=== PATIENT | female | born 1955 | race Two or more races ===

== ENCOUNTER 2021-02-23 09:29 | Inpatient (IN) | payer OTHER ==
[~2021-02-23] VITALS: Wt 5.0 kg
[2021-02-23] MEDS ORDERED: DILTIAZEM ER120 M2 (09:53)
[2021-02-23] MEDS ORDERED: RAYOS5 MG (09:53)
[2021-02-23] MEDS ORDERED: CRESTOR5 MG (09:54)
[2021-02-23] MEDS ORDERED: BUDESONIDE-FO10.2 G1 (09:55)
[2021-03-01] MEDS ORDERED: BENZONATATE200 M1 PO (19:05)
[2021-03-01] MEDS ORDERED: Proventyl Hfa 90MG P IH (19:05)
[2021-03-01] MEDS ORDERED: BAYER THERAPY325 MG PO (19:05)
[2021-03-01] MEDS ORDERED: ZITHROMAX500 MG PO (19:05)
[2021-03-01] MEDS ORDERED: PREDNISONE PO (19:05)
[2021-03-01] MEDS ORDERED: VITAMIN C500 M1 PO (19:05)
[2021-03-01] MEDS ORDERED: MELATONIN5 M2 PO (19:05)
[2021-03-01] MEDS ORDERED: ZINC SULFATE50 M1 PO (19:05)
== END 2021-03-01 20:21 | disposition home or self-care (01) | DRG 177 ==
LOC: ER 09:29 → MEDJ 02-24 03:14
PROVIDERS: ADMIT Internal Medicine; ATTEND Internal Medicine
PROC: 3E0F7GC Introduction of Other Therapeutic Substance into Respiratory Tract, Via Natural or Artificial Opening (ICD-10-PCS; principal; 2021-02-24)
PROC: 3E0F7SF Introduction of Other Gas into Respiratory Tract, Via Natural or Artificial Opening (ICD-10-PCS; 2021-02-24)
PROC: 4A033R1 Measurement of Arterial Saturation, Peripheral, Percutaneous Approach (ICD-10-PCS; 2021-02-24)
PROC: 8E0ZXY6 Isolation (ICD-10-PCS; 2021-02-24)
PROC: 4A12X4Z Monitoring of Cardiac Electrical Activity, External Approach (ICD-10-PCS; 2021-02-24)
PROC: BW25ZZZ Computerized Tomography (CT Scan) of Chest, Abdomen and Pelvis (ICD-10-PCS; 2021-02-26)
DX: U07.1 COVID-19 (principal); J12.82 Pneumonia due to coronavirus disease 2019; J15.7 Pneumonia due to Mycoplasma pneumoniae; B37.0 Candidal stomatitis; R09.02 Hypoxemia; J44.9 Chronic obstructive pulmonary disease, unspecified; I10 Essential (primary) hypertension; F17.200 Nicotine dependence, unspecified, uncomplicated; E78.5 Hyperlipidemia, unspecified; Z20.822 Contact with and (suspected) exposure to COVID-19

== ENCOUNTER 2021-11-23 09:43 | Outpatient (CLI) | payer OTHER ==
[~2021-11-23 09:43] MED LIST: BAYER THERAPY325 MG PO; BENZONATATE200 M1 PO; BUDESONIDE-FO10.2 G1; CRESTOR5 MG; DILTIAZEM ER120 M2; MELATONIN5 M2 PO; PREDNISONE PO; Proventyl Hfa 90MG P IH; RAYOS5 MG; VITAMIN C500 M1 PO; ZINC SULFATE50 M1 PO; ZITHROMAX500 MG PO
== END 2021-11-23 10:36 | disposition home or self-care (01) ==
LOC: TOM 09:43
PROVIDERS: ATTEND Internal Medicine Gastroenterology
DX: K56.5 Intestinal adhesions [bands] with obstruction (postinfection) (principal); R19.00 Intra-abdominal and pelvic swelling, mass and lump, unspecified site

== ENCOUNTER 2022-02-03 07:38 | Emergency (ER) | payer OTHER ==
[~2022-02-03] VITALS: Ht 152.4 cm; Wt 55.3 kg
[2022-02-03] MEDS ORDERED: PEPCID40 MG (07:46)
[2022-02-03] MEDS ORDERED: LEVSIN/SL0.125 MG (07:47)
[2022-02-03] MEDS ORDERED: ZOFRAN8 MG PO (07:47)
== END 2022-02-03 09:12 | disposition home or self-care (01) ==
LOC: ER 07:38
DX: M94.0 Chondrocostal junction syndrome [Tietze] (principal); J44.9 Chronic obstructive pulmonary disease, unspecified; E78.00 Pure hypercholesterolemia, unspecified; I10 Essential (primary) hypertension

== ENCOUNTER 2022-09-16 11:38 | Emergency (ER) | payer OTHER ==
[~2022-09-16] VITALS: Ht 152.4 cm; Wt 54.9 kg
[~2022-09-16 11:38] MED LIST changes: +LEVSIN/SL0.125 MG; +PEPCID40 MG; +ZOFRAN8 MG PO
[2022-09-16] MEDS ORDERED: CRESTOR10 MG (12:31)
== END 2022-09-16 17:37 | disposition home or self-care (01) ==
LOC: ER 11:38
DX: R05.9 Cough, unspecified (principal); F17.200 Nicotine dependence, unspecified, uncomplicated; Z20.822 Contact with and (suspected) exposure to COVID-19; I10 Essential (primary) hypertension

== ENCOUNTER 2024-12-15 06:23 | Day surgery (SDC) | payer OTHER ==
[2024-12-13 12:25] VITALS: BP 128/80
[~2024-12-15] VITALS: Ht 152.4 cm; Wt 56.2 kg
[~2024-12-15 06:23] MED LIST changes: +CRESTOR10 MG
[2024-12-15] MEDS ORDERED: TRAM1TAB98 PO (10:42)
[2024-12-15] MEDS ORDERED: CIPRO500 MG PO (10:43)
[2024-12-15] MEDS ORDERED: POVIDONE-IODINE 118 ML BOTT TOP ONE (11:21)
[2024-12-15] MEDS ORDERED: CEFAZOLIN SODIUM 1,000 MG VIAL ONE (11:22)
== END 2024-12-15 15:00 | disposition home or self-care (01) ==
LOC: CIR.AMB 06:23
PROVIDERS: ATTEND Surgery
DX: D21.6 Benign neoplasm of connective and other soft tissue of trunk, unspecified (principal); D21.0 Benign neoplasm of connective and other soft tissue of head, face and neck; D49.2 Neoplasm of unspecified behavior of bone, soft tissue, and skin